=== PATIENT | male | born 1995 | race Caucasian/White ===

== ENCOUNTER 2018-02-09 23:39 | Emergency (ER) | payer OTHER ==
[2018-02-10] MEDS: dexameTHASONE 20 MG/5 ML VIAL (J1100) IV (00:15)
[2018-02-10] MEDS: diphenhydrAMINE INJ 50MG/ML VIAL (J1200) IV (00:15)
[2018-02-10] MEDS: FAMOTIDINE IV BAG 20 MG in APPROPRIATE DILUENT 1 EA IV (00:15)
== END 2018-02-10 04:10 | disposition home or self-care (01) ==
LOC: M ED 23:39
DX: T78.40XA Allergy, unspecified, initial encounter (principal); Y92.9 Unspecified place or not applicable; Y93.9 Activity, unspecified; Z91.010 Allergy to peanuts; Z91.018 Allergy to other foods
CPT/HCPCS: J1200